=== PATIENT | male | born 1945 | race Caucasian/White ===

== ENCOUNTER 2021-09-16 11:26 | Inpatient (IN) ==
[2021-09-16 12:36] LABS: Basophils % 0.5 % (0.0-0.8); Eosinophils # 0.1 10*3/uL (0.0-0.87); Eosinophils % 1.4 % (0.00-10.9); Immature Granulocytes % 0.8 %; Immature Granulocytes Absolute 0.07 #; Lymphocytes # 1.8 10*3/uL (1.4-4.0); Lymphocytes % 21.3 % (21.2-54.2); Mean Corpuscular Volume 70.1 FL (87-102); Mean Platelet Volume 11.1 FL (9.6-12.0); Monocytes # 0.9 10*3/uL (0.11-0.8); Monocytes % 11.2 % (1.7-12.7); NRBC # 0.03 10*3/uL; Neutrophils % 64.8 % (38.7-73.9); Platelet Count 261 T/CUMM (130-400); Red Blood Count 2.11 MC/CUMM (3.8-5.5); Red Cell Distribution Width 18.2 % (9.3-17.3); White Blood Count 8.4 T/CUMM (4-12)
[2021-09-16 12:40] LABS: Hematocrit 14.8 VOL% (42.0-52.0)
[2021-09-16 12:58] LABS: Bilirubin,Urine Negative (Negative); Blood, Urine Negative (Negative); Glucose,Urine (UA) Negative (Negative); Hyaline Casts,Urine 5 /LPF (0-3); Ketones,Urine Negative (Negative); Nitrite,Urine Negative (Negative); Protein,Urine Negative (Negative); RBC,Urine 1 /HPF (0-4); Urine Appearance Clear (Clear); Urine Color Yellow (Yellow); Urine Urobilinogen 0.2 eU/dL (<2.0); Urine pH 6.5 (4.5-8.0)
[2021-09-16 12:58] LABS: Bilirubin,Total 0.5 MG/DL (0.20-1.00); Calcium 8.7 MG/DL (8.5-10.1); Osmolality,Calculated 284.3 MOS/KG (273-304); Potassium 4.2 MMOL/L (3.5-5.1); Total Protein 6.4 G/DL (6.4-8.2)
[2021-09-16 13:02] LABS: % Iron Saturation 3.2 % (18-50)
[2021-09-16 13:10] LABS: Anisocytosis 1+; Hypochromia 2+; Microcytosis 2+; Polychromasia 1+
[2021-09-16 13:11] LABS: Platelet Estimate Adequate
[2021-09-16] MEDS ORDERED: SODIUM CHLORIDE 0.9% 1,000 ML IV PRN ×3 (13:38→23:15)
[2021-09-16 14:01] LABS: Folate 13.47 NG/ML (5.38-24.0)
[2021-09-16] MEDS ORDERED: GLUCAGON 1 MG VIAL IM PRN (14:16)
[2021-09-16] MEDS ORDERED: ONDANSETRON 4 MG/2 ML VIAL IV PRN (14:16)
[2021-09-16] MEDS ORDERED: ACETAMINOPHEN 325 MG TABLET PO PRN (14:16)
[2021-09-16] MEDS ORDERED: DEXTROSE 10% 250 ML BAG IV PRN (14:21)
[2021-09-16] MEDS: LACTATED RINGERS 1,000 ML IV SCH (14:45)
[2021-09-16] MEDS: PANTOPRAZOLE 40 MG VIAL IV SCH ×2 (14:45→20:15)
[2021-09-16 14:53] LABS: Thyroid Stimulating Hormone 2.74 uIU/ml (0.358-3.74)
[2021-09-16] MEDS: ASCORBIC ACID 500 MG TABLET PO SCH (20:15)
[2021-09-16 21:05] LABS: Hematocrit 20.4 VOL% (42.0-52.0)
[2021-09-16 21:08] LABS: Hemoglobin 5.8 GM/DL (14.0-18.0)
[2021-09-17] MEDS ORDERED: LACTATED RINGERS 1,000 ML IV SCH (08:30)
[2021-09-17 08:39] LABS: Basophils # 0.1 10*3/uL (0.0-0.2); Basophils % 0.7 % (0.0-0.8); Eosinophils # 0.1 10*3/uL (0.0-0.87); Eosinophils % 1.3 % (0.00-10.9); Hematocrit 21.6 VOL% (42.0-52.0); Hemoglobin 6.5 GM/DL (14.0-18.0); Immature Granulocytes % 0.7 %; Immature Granulocytes Absolute 0.05 #; Lymphocytes # 1.5 10*3/uL (1.4-4.0); Lymphocytes % 19.4 % (21.2-54.2); Mean Corpuscular HGB Conc 30.1 GM/DL (32-36); Mean Corpuscular Volume 74.7 FL (87-102); Mean Platelet Volume 10.8 FL (9.6-12.0); Monocytes # 0.8 10*3/uL (0.11-0.8); Monocytes % 10.9 % (1.7-12.7); NRBC # 0.03 10*3/uL; Platelet Count 218 T/CUMM (130-400); Red Blood Count 2.89 MC/CUMM (3.8-5.5); White Blood Count 7.5 T/CUMM (4-12)
[2021-09-17 08:57] LABS: Albumin 2.8 G/DL (3.4-5.0); Bilirubin,Total 1.6 MG/DL (0.20-1.00); Calcium 8.2 MG/DL (8.5-10.1); Osmolality,Calculated 280.4 MOS/KG (273-304); Potassium 4.5 MMOL/L (3.5-5.1); Risk Ratio 4.07; Total Protein 6.2 G/DL (6.4-8.2)
[2021-09-17] MEDS: LACTATED RINGERS 1,000 ML IV SCH ×3 (09:54→20:44)
[2021-09-17] MEDS: ASCORBIC ACID 500 MG TABLET PO SCH ×2 (09:55→20:43)
[2021-09-17] MEDS: LOSARTAN 50 MG TABLET PO SCH (09:55)
[2021-09-17] MEDS: PANTOPRAZOLE 40 MG VIAL IV SCH (09:55)
[2021-09-17] MEDS ORDERED: SODIUM CHLORIDE 0.9% 1,000 ML IV PRN (10:22)
[2021-09-17] MEDS ORDERED: propofoL 200 MG/20 ML VIAL IV ONE (14:27)
[2021-09-17] MEDS ORDERED: ETOMIDATE 20 MG/10 ML VIAL IV ONE (14:27)
[2021-09-17] MEDS ORDERED: LIDOCAINE 2% 5 ML VIAL ONE (14:27)
[2021-09-17] MEDS ORDERED: BISACODYL 5 MG TABLET PO ONE (15:00)
[2021-09-17] MEDS ORDERED: POLYETHYLENE GLYCOL POWDER 255 GM BOTTLE PO ONE (18:00)
[2021-09-17 20:33] LABS: Hematocrit 26.7 VOL% (42.0-52.0); Hemoglobin 8.2 GM/DL (14.0-18.0)
[2021-09-18] MEDS ORDERED: POLYETHYLENE GLYCOL POWDER 255 GM BOTTLE PO ONE (05:00)
[2021-09-18 05:07] LABS: Basophils # 0.1 10*3/uL (0.0-0.2); Basophils % 0.6 % (0.0-0.8); Eosinophils # 0.3 10*3/uL (0.0-0.87); Eosinophils % 4.3 % (0.00-10.9); Hematocrit 25.3 VOL% (42.0-52.0); Hemoglobin 7.7 GM/DL (14.0-18.0); Immature Granulocytes % 0.5 %; Immature Granulocytes Absolute 0.04 #; Lymphocytes # 1.7 10*3/uL (1.4-4.0); Lymphocytes % 22.2 % (21.2-54.2); Mean Corpuscular HGB Conc 30.4 GM/DL (32-36); Mean Corpuscular Volume 76.2 FL (87-102); Mean Platelet Volume 10.9 FL (9.6-12.0); Monocytes % 13.3 % (1.7-12.7); NRBC # 0.03 10*3/uL; Neutrophils % 59.1 % (38.7-73.9); Platelet Count 214 T/CUMM (130-400); Red Blood Count 3.32 MC/CUMM (3.8-5.5); Red Cell Distribution Width 18.5 % (9.3-17.3); White Blood Count 7.7 T/CUMM (4-12)
[2021-09-18 05:19] LABS: PT Patient Result 11.5 SECS (10.5-12.0)
[2021-09-18 05:22] LABS: Calcium 8.5 MG/DL (8.5-10.1); Osmolality,Calculated 279.4 MOS/KG (273-304); Potassium 4.5 MMOL/L (3.5-5.1)
[2021-09-18] MEDS ORDERED: LACTATED RINGERS 1,000 ML IV SCH (08:00)
[2021-09-18] MEDS ORDERED: PANTOPRAZOLE 40 MG TABLET PO SCH (09:00)
[2021-09-18] MEDS: ASCORBIC ACID 500 MG TABLET PO SCH (10:16)
[2021-09-18] MEDS: LOSARTAN 50 MG TABLET PO SCH (10:16)
[2021-09-18] MEDS: LACTATED RINGERS 1,000 ML IV SCH (10:16)
[2021-09-18] MEDS ORDERED: LIDOCAINE 2% 5 ML VIAL ONE (12:40)
[2021-09-18] MEDS ORDERED: propofoL 200 MG/20 ML VIAL IV ONE (12:40)
[2021-09-18 13:32] VITALS: BP 130/72
== END 2021-09-18 15:33 | disposition home or self-care (01) | DRG 812 ==
LOC: N.ED 11:26 → N.EDINP 14:16 → SUATTDRO 14:16 → N.EDINP 16:07 → N.TELEN 16:11
PROVIDERS: ADMIT Internal Medicine; ATTEND Internal Medicine